=== PATIENT | male | born 1965 | race Caucasian/White ===

== ENCOUNTER 2020-06-06 17:00 | Emergency (ER) | payer OTHER ==
[~2020-06-06] VITALS: Ht 170.2 cm; Wt 88.5 kg
[~2020-06-06 17:00] MED LIST: DOXYCYCLINE 10100 MG PO; LEVAQUIN 500 M500 MG PO; PERCOCET 5-3251 EACH PO
[2020-06-06] MEDS ORDERED: AUGMENTIN 875-1 EACH PO (18:57)
[2020-06-06] MEDS ORDERED: HYDROCODON-ACE1 EAC7 PO (18:57)
[2020-06-06 19:19] VITALS: BP 151/94
== END 2020-06-06 19:20 | disposition home or self-care (01) ==
LOC: ER 17:00
DX: S61.412A Laceration without foreign body of left hand, initial encounter (principal); Z98.890 Other specified postprocedural states; W54.0XXA Bitten by dog, initial encounter; Y93.89 Activity, other specified; Y92.89 Other specified places as the place of occurrence of the external cause; Y99.8 Other external cause status

== ENCOUNTER 2020-06-20 19:50 | Emergency (ER) | payer OTHER ==
[~2020-06-20] VITALS: Ht 170.2 cm; Wt 86.2 kg
[~2020-06-20 19:50] MED LIST changes: +AUGMENTIN 875-1 EACH PO; +HYDROCODON-ACE1 EAC7 PO
[2020-06-20 19:53] VITALS: BP 151/99
[2020-06-21] MEDS ORDERED: NOHOMEMEDICATIONS (03:39)
== END 2020-06-20 21:40 | disposition home or self-care (01) ==
LOC: ER 19:50
DX: S61.411D Laceration without foreign body of right hand, subsequent encounter (principal); Z98.890 Other specified postprocedural states; Z79.2 Long term (current) use of antibiotics; Z79.899 Other long term (current) drug therapy; W54.0XXD Bitten by dog, subsequent encounter